=== PATIENT | male | born 1975 | race African-American/Black ===

== ENCOUNTER 2021-01-25 09:03 | Emergency (ER) | payer SELFPAY ==
--- NOTE | ~2021-01-25 | XR_ITS ---
EXAMINATION: XR shoulder RT min 2V EXAM DATE: 01/25/2021 09:58 INDICATION: rt shoulder pain s/p pulling injury 5 days ago. TECHNIQUE: The following right shoulder projections obtained: frontal projection with internal rotati on, frontal projection with external rotation, Grashey, and scapular Y view (4+ views). There is no prior study for comparison. FINDINGS: No evidence of right shoulder rotator cuff calcific tendinosis. There is no glenohumeral joint, moderate acromioclavicular joint primary osteoarthritis. There are no acute fractures or disl ocations identified. There is no subcutaneous gas. The soft tissue is unremarkable. There are no radiopaque foreign bodies. IMPRESSION: Moderate right acromioclavicular joint osteoarthritis. Reviewed, dictated and finalized at location B.
[2021-01-25 09:18] VITALS: BP 157/88; PULSE 79; RESP 16; TEMP 36.3; O2SAT 97
--- NOTE | 2021-01-25 09:32 | ED.UPPEXIN ---
HPI - Extremity Injury (Upper) General Chief Complaint: Extremity Injury, Upper Stated Complaint: Right shoulder Pain Time Seen by Provider: 01/25/21 09:34 Source: patient, RN notes reviewed and old records reviewed Mode of arrival: ambulatory Limitations: no limitations History of Present Illness HPI narrative: 45-year-old male who presents to [facility] with complaints of right shoulder pain which started on which has progressively increased in intensity. Patient states that he had to call off work last night due to his discomfort and needs a work note. 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 He states his shoulder was sore but he was able to move it, then he had to disconnect trailer again on Monday. He states that the pain to his right shoulder has increased in intensity and he is unable to move his right shoulder due to his discomfort. Patient states that this is related to work and he has to get ahold of workman's compensation for any further follow up but needs note for having to call off last night and something for his discomfort. patient reports that he has taken Tylenol and used ice to his right shoulder with no improvement in his pain. MD complaint: injury to: right and shoulder Onset (ago): day(s) (since ) Other Extremity Injury: Right: shoulder Other injuries: none Handedness: right Place: work Severity: severe Severity scale (1-10): 10 Related Data Home Medications Medication Instructions Recorded Confirmed amlodipine 01/25/21 01/25/21 clonidine HCl 01/25/21 metoprolol succinate PO 01/25/21 simvastatin mg 01/25/21 triamterene-hydrochlorothiazid cap 01/25/21 Allergies Allergy/AdvReac Type Severity Reaction Status Date / Time No Known Allergies Allergy Unverified 01/25/21 09:29 Review of Systems Review of Systems: CONSTITUTIONAL: Denies fever, chills, or sweats. EYES: Denies visual changes, redness, or discharge. ENT: Denies rhinorrhea, congestion, sore throat, or otalgia. CARDIOVASCULAR: Denies chest pain, palpitations, or edema. RESPIRATORY: Denies cough or dyspnea. GASTROINTESTINAL: Denies abdominal pain, nausea, vomiting, or diarrhea. GENITOURINARY: Denies dysuria or hematuria. SKIN: Denies rash or itching. MUSCULOSKELETAL: Denies back pain,positive for right shoulder pain and inability to use right arm due to pain, no other joint pain, or myalgia. NEUROLOGIC: Denies headache, numbness, or weakness. PSYCHIATRIC: Denies anxiety or depression. All systems reviewed & are unremarkable except as noted in HPI and below PMFSH Past Medical History Medical History (Updated 01/27/21 @ 14:18 by Alyson Lira NP) Aortic dissection Asthma as child Bronchitis Elevated cholesterol Hypertension Obesity, morbid Surgical History Surgical History (Updated 01/27/21 @ 14:09 by Alyson Lira NP) S/P aortic dissection repair off of heart in 2007 Family History Family History (Updated 01/27/21 @ 14:18 by Alyson Lira NP) Other Hypertension Social History Social History (Updated 01/27/21 @ 14:17 by Alyson Lira NP) Smoking status: Former smoker Additional smoking assessment comments: quit 2007 Alcohol intake: current Alcohol use details: rare alcohol Substance use: never Living arrangements: with family Gender identity (if verbalized by the patient): Male Comments At time of signature, agree with nursing past medical, surgical, social and family history. There is no relevant family history pertinent to the presenting complaint Exam Narrative: GENERAL: Well-appearing, well-nourished, and in some acute pain to right shoulder HEAD: Normocephalic, atraumatic. EYES: PERRLA and EOMI. ENT: Nares clear, no rhinorrhea or epistaxis. Mucous membranes moist.TM's normal with good light reflex, throat pink with no r
== END 2021-01-25 10:40 | disposition home or self-care (01) ==
PROVIDERS: Emergency Provider Registered Nurse
DX: M25.511 Pain in right shoulder (principal); I10 Essential (primary) hypertension; E78.00 Pure hypercholesterolemia, unspecified
CPT/HCPCS: 73030; 99213; G0463